=== PATIENT | female | born 1930 | race Asian ===

== ENCOUNTER 2018-04-02 13:10 | Emergency (ER) | payer OTHER, MEDICAID ==
--- NOTE | 2018-04-02 14:41 | EDPHY ---
H & P Time Seen by Provider: 04/02/18 13:14 HPI/ROS: CHIEF COMPLAINT: Right shoulder pain HISTORY OF PRESENT ILLNESS: Per patient, translated through her daughter, she fell climbing stairs on Monday. Patient states that she missed a step and fell striking her right shoulder on the wall as she fell down approximately 5 steps. She did not get knocked out. She denies any other injuries besides her right shoulder and some abrasions and small lacerations on her elbow. She was not dizzy prior to her fall. She did not have chest pain prior to her fall. She has been using her arm but finds it difficult and painful to lift it above her head. Tetanus vaccination 2013. REVIEW OF SYSTEMS: Negative except per HPI. General Appearance: Alert, no distress. Eyes: Pupils equal and round no icterus Respiratory: No respiratory distress, lungs clear to auscultation bilaterally. Neurological: Awake, alert, no focal deficits. Skin: Warm and dry, no rashes. Musculoskeletal: Neck is supple nontender. Extremities are symmetrical, right shoulder is tender to palpation at the acromioclavicular joint and diffusely over the humeral head. Also ecchymosis extends down to mid upper extremity. Two small lacerations present on her elbow. Distal sensation, strength, circulation to right hand and wrist normal. Psychiatric: Patient is oriented X 3, there is no agitation. Smoking Status: Never smoked Constitutional: Initial Vital Signs Temperature (C) 36.4 C 04/02/18 13:24 Heart Rate 73 04/02/18 13:24 Respiratory Rate 16 04/02/18 13:24 Blood Pressure 114/76 04/02/18 13:24 O2 Sat (%) 89 L 04/02/18 13:24 O2 Delivery Mode Room Air O2 (L/minute) 2 Allergies/Adverse Reactions: No Known Allergies Allergy (Verified 04/02/18 13:21) Home Medications: Medication Instructions Recorded Aspirin EC 81 mg (*) 04/02/18 Flovent 220 MCG Hfa MDI (*) 04/02/18 Lisinopril 04/02/18 Multivitamins 04/02/18 Probiotic 04/02/18 Simvastatin 04/02/18 Ventolin Hfa 04/02/18 Medical Decision Making - Diagnostics Imaging Results: Imaging Impressions Humerus X-Ray 04/02/18 13:39 Impression: 1. Right acromion process fracture. 2. No definite right humerus fracture. Shoulder X-Ray 04/02/18 13:39 Impression: 1. Acute fracture of the right acromion process with slight displacement. 2. No definite fracture of the right humeral head or neck. 3. No evidence of right clavicle fracture. Imaging: I viewed and interpreted images myself Differential Diagnosis: Differential diagnosis includes but is not limited to fracture, dislocation, subluxation, contusion, P. After evaluation suspect mechanical cause for her fall on Monday. Found have unusual a chromium process fracture without humeral head injury or dislocation. Neurovascularly intact. Will place in a sling. Referred to Orthopedics in 5-7 days for re-evaluation. Patient will likely benefit from physical therapy to help avoid frozen shoulder. Also discussed [id number] exercises that she can start right away. Tolerating the injury well. Stable for discharge. Departure - Departure Clinical Impression: Acromial fracture Qualifiers: Encounter type: initial encounter Fracture type: closed Fracture alignment: displaced Laterality: right Qualified Code(s): S42.121A - Displaced fracture of acromial process, right shoulder, initial encounter for closed fracture Condition: Good Instructions: Rotator Cuff Injury (ED), Scapular Fracture (ED) Additional Instructions: Wear sling as discussed. You can start doing gentle shoulder circles to maintain range of motion as I demonstrated. Call orthopedic doctor for follow- up in the next 5-7 days. Ice, ibuprofen, Tylenol for pain. Referrals: Barbara Burkett DO [Primary Care Provider] - As per Instructions
[2018-04-02 15:17] VITALS: BP 130/88
== END 2018-04-02 15:15 | disposition home or self-care (01) ==
LOC: CED 13:10
DX: S42.121A Displaced fracture of acromial process, right shoulder, initial encounter for closed fracture (principal); S51.012A Laceration without foreign body of left elbow, initial encounter; W10.8XXA Fall (on) (from) other stairs and steps, initial encounter; Y92.9 Unspecified place or not applicable
CPT/HCPCS: 73030-PO; 73060-PO